=== PATIENT | male | born 1965 ===

== ENCOUNTER 2021-10-25 11:19 | Outpatient (CLI) | payer BC ==
[2021-10-25 11:42] LABS: Hematocrit 48.9 % (35.5-45.6); Hemoglobin 16.9 gm/dl (11.8-15.2); Mean Corpuscular HGB Conc 35 % (32-34); Mean Corpuscular Volume 88 fl (84-94); Platelet Count 256 K/mm3 (140-440); Red Blood Count 5.58 M/mm3 (3.65-5.03); Red Cell Distribution Width 14.8 % (13.2-15.2)
[2021-10-25 12:10] LABS: Alanine Aminotransferase 31 units/L (7-56); Albumin 4.8 g/dL (3.9-5); Blood Urea Nitrogen 14 mg/dL (9-20); Calcium 9.7 mg/dL (8.4-10.2); Chol/HDL Ratio 5.07 %; HDL Cholesterol 41 mg/dL (40-59); Hemolysis Index 7; LDL Cholesterol,Direct 149 mg/dL (50-130)
[2021-10-25 12:11] LABS: BUN/Creatinine Ratio 20
[2021-10-25 12:36] LABS: Band Neutrophils # (Manual) 0.1 K/mm3; Total Cells Counted 100
[2021-10-25 12:40] LABS: Anisocytosis Few; Large Platelets Rare; Platelet Estimate Consistent w Auto
== END 2021-10-25 11:20 | disposition home or self-care (01) ==
LOC: LAB 11:19
PROVIDERS: ATTEND Internal Medicine
DX: Z00.00 Encounter for general adult medical examination without abnormal findings (principal); E66.01 Morbid (severe) obesity due to excess calories; R73.9 Hyperglycemia, unspecified; R53.83 Other fatigue; E55.9 Vitamin D deficiency, unspecified
CPT/HCPCS: 36415; 80053; 80061; 82306; 83036; 84443; 85007; 85025

== ENCOUNTER 2022-03-10 08:47 | Outpatient (CLI) | payer BC ==
[2022-03-10 09:59] LABS: Chol/HDL Ratio 4.15 %
== END 2022-03-10 08:48 | disposition home or self-care (01) ==
LOC: LAB 08:47
PROVIDERS: ATTEND Internal Medicine
DX: R73.03 Prediabetes (principal); E78.5 Hyperlipidemia, unspecified
CPT/HCPCS: 36415; 80061; 83036